=== PATIENT | female | born 1990 | race African-American/Black ===

== ENCOUNTER 2019-02-04 10:14 | Emergency (ER) | payer BC ==
[2019-02-04 10:25] VITALS: TEMP 98.6; BMI 19.8
--- NOTE | 2019-02-04 11:17 | PDOC ---
History of Present Illness - General Chief Complaint: Vaginal Bleeding Stated Complaint: SEVEN WK MD/VAGINAL BLEEDING Time Seen by Provider: 02/04/19 10:55 History Source: Patient Exam Limitations: No Limitations - History of Present Illness Initial Comments: 02/04/19 11:16 28F w/ pmh of fibroids presents to [facility] with complaint of vaginal bleeding x1 episode. Denies pain. Had streaks of light blood on the toilet paper , light pink water. Never had episodes of vaginal bleed outside of menstruation. Endorses increase in urinary frequency, urinating 3x/hr. Engages in nonbarrier monogamous intercourse with boyfriend. Last sexual intercourse was 2d prior. LMP was December 16. Never had had prior pregnancies. Has not see OB , appt set up for next week. Had yeast infection treated 1 month ago, treated with 1wk of vaginal topical medication. Had h/o chlamydia, 5ys prior. Severity: mild Associated Symptoms: denies: chest pain, cough, diaphoresis, fever/chills, headaches, malaise, nausea/vomiting, shortness of breath Past History - Travel Traveled outside of the country in the last 30 days: No Close contact w/someone who was outside of country & ill: No - Past Medical History Allergies/Adverse Reactions: Allergies Allergy/AdvReac Type Severity Reaction Status Date / Time No Known Allergies Allergy Verified 02/04/19 10:22 Home Medications: Ambulatory Orders Miconazole Nitrate [Miconazole 7] 45 gm VG DAILY #7 cream.appl 02/04/19 Prenat 115/Iron Fum/Folic/Dss [ 19 Tablet] 1 each PO DAILY 02/04/19 COPD: No - Surgical History Abdominal Surgery: No Appendectomy: No - Family Disease History Family Disease History: Other: Father (HTN) - Reproductive History LMP comment: December 16, 2018 Is Patient Now?: Yes (#): 1 Para: 0 - Immunization History Immunization Up to Date: No - Suicide/Smoking/Psychosocial Hx Smoking History: Never smoked Hx Alcohol Use: No Drug/Substance Use Hx: No Review of Systems - Review of Systems Is the patient limited [place]se proficient: No Constitutional: No: Chills, Fever, Malaise HEENTM: No: Blurred Vision, Double Vision Respiratory: No: Cough, Shortness of Breath, Wheezing Cardiac (ROS): No: Chest Pain, Irregular Heart Rate ABD/GI: Yes: Nausea, Other (mild nausea for past weeks). No: Constipated, Diarrhea : Yes: Frequency (urinates 3x/hr) Neurological: No: Headache, Dizziness *Physical Exam - Vital Signs Last Vital Signs Temp Pulse Resp BP Pulse Ox 98.6 F 75 18 145/94 100 02/04/19 10:22 02/04/19 10:22 02/04/19 10:22 02/04/19 10:22 02/04/19 10:22 - Physical Exam General Appearance: Yes: Nourished. No: Apparent Distress HEENT: positive: EOMI. negative: Pale Conjunctivae, Scleral Icterus (R), Scleral Icterus (L) Neck: positive: Trachea midline. negative: Lymphadenopathy (R), Lymphadenopathy (L) Respiratory/Chest: positive: Lungs Clear, Normal Breath Sounds. negative: Respiratory Distress, Accessory Muscle Use, Labored Respiration Cardiovascular: positive: Regular Rhythm, Regular Rate, S1, S2. negative: Murmur Female Pelvic Exam: positive: normal external exam, cervical os closed, normal adnexa, discharge (thick yellow-white chunky discharge with slight pink tinge). negative: CMT, lesions, Bartholin mass, adnexal tenderness Gastrointestinal/Abdominal: positive: Flat, Soft. negative: Tender, Guarding, Rebound, Tenderness ED Treatment Course - LABORATORY CBC & Chemistry Diagram: 02/04/19 11:40 02/04/19 11:40 Medical Decision Making - Medical Decision Making 02/04/19 12:06 28F with pmh of fibroids presenting w/ complaint of light vaginal bleeding, increased urinary frequency; physical exam findings suggestive of possible fungal infection # vaginal bleeding - fu serum B-hCG - fu TVUS - fu CBC - fu T&S -- to check for Rh status # urinary frequency -- possible UTIs - fu UA, UCX # vaginal fungal infection - possible fluconazole as outpatient # risk of STDs - fu trich, GC panel - will treat as needed 02/04/19 12:11 02/04/19 14:09 *DC/Admit/Observation/Transfer Diagnosis at time of Disposition: Vaginal candidiasis - Discharge Dispostion Disposition: HOME Condition at time of disposition: Improved - Prescriptions Prescriptions: Miconazole Nitrate [Miconazole 7] 45 gm VG DAILY #7 cream.appl - Referrals Referrals: Salvador Hensley MD [Staff Physician] - - Patient Instructions Printed Discharge Instructions: DI for Abdominal Pain -- Early Additional Instructions: You were seen in the ER for vaginal bleeding in . We did an exam, laboratory work on your blood and urine, and an ultrasound. After our assessment , we believe you are having a miscarriage but we do not think you are having a medical emergency at this time, and you are safe to go home. Please take Tylenol for any mild-moderate pain. Follow up with your credit review analyst in the next 1-3 days, or come back to the ER in 2 days, for repeat hormone level testing and repeat ultrasound to make sure you don't have an ectopic . Call their clinic [facility], tell them you were seen in the er, and tell them you need an appointment. Please come back to the ER at any time (24 hours a day) for any new or worsening symptoms, like worsening pelvic pain, loss of consciousness, high fever, headache, seizure, fainting, anemia, large amount of blood loss, or other symptoms. If you are having severe or life threatening symptoms, or symptoms that make it unsafe to drive or have someone drive you, please call 911. - Post Discharge Activity
[2019-02-04 11:50] LABS: BASO % 1.5 % (0-2.0); EOS % 1.3 % (0-4.5); HEMATOCRIT 40.8 % (32.4-45.2); HEMOGLOBIN 13.6 GM/dL (10.7-15.3); LYMPH % 31.6 % (8-40); MCH 30.2 pg (25.7-33.7); MCHC 33.4 g/dl (32.0-36.0); MEAN CELL VOLUME 90.5 fl (80-96); MONO % 8.3 % (3.8-10.2); NEUT % 57.3 % (42.8-82.8); PLATELET COUNT 217 K/MM3 (134-434); RBC 4.51 M/mm3 (3.60-5.2); RDW 13.6 % (11.6-15.6); WHITE BLOOD COUNT 3.5 K/mm3 (4.0-10.0)
[2019-02-04 12:27] LABS: ALBUMIN 3.7 g/dl (3.4-5.0); BILIRUBIN,TOTAL 0.4 mg/dL (0.2-1); BLOOD UREA NITROGEN 4.4 mg/dL (7-18); CALCIUM 9.2 mg/dL (8.5-10.1); CREATININE 0.7 mg/dL (0.55-1.3); TOT PROT 7.2 g/dl (6.4-8.2)
[2019-02-04 12:50] LABS: PH,URINE 7.5 (5.0-8.0); URINE APPEARANCE CLEAR; URINE BILIRUBIN NEGATIVE (NEGATIVE); URINE COLOR YELLOW; URINE GLUCOSE (UA) NEGATIVE (NEGATIVE); URINE KETONE NEGATIVE (NEGATIVE); URINE LEUK ESTERASE NEGATIVE (NEGATIVE); URINE NITRITE NEGATIVE (NEGATIVE); URINE PROTEIN NEGATIVE (NEGATIVE); URINE UROBILINOGEN 0.2 mg/dL (0.2-1.0)
--- NOTE | 2019-02-04 13:26 | PDOC ---
*Physical Exam - Vital Signs Last Vital Signs Temp Pulse Resp BP Pulse Ox 98.6 F 75 18 145/94 100 02/04/19 10:22 02/04/19 10:22 02/04/19 10:22 02/04/19 10:22 02/04/19 10:22 - Physical Exam General Appearance: Yes: Nourished, Appropriately Dressed. No: Apparent Distress HEENT: positive: EOMI, MADI, Normal Voice, Symmetrical Neck: positive: Trachea midline. negative: Tender Respiratory/Chest: positive: Lungs Clear, Normal Breath Sounds. negative: Chest Tender, Respiratory Distress, Accessory Muscle Use Cardiovascular: positive: Regular Rhythm, Regular Rate Extremity: positive: Normal Capillary Refill, Normal Inspection, Normal Range of Motion, Tender Integumentary: positive: Normal Color, Dry, Warm Neurologic: positive: congressional aide II-XII NML intact, Fully Oriented, Alert, Normal Mood/ Affect <Beny Cai - Last Filed: 02/04/19 13:44> - Vital Signs Last Vital Signs Temp Pulse Resp BP Pulse Ox 98.6 F 75 18 145/94 100 02/04/19 10:22 02/04/19 10:22 02/04/19 10:22 02/04/19 10:22 02/04/19 10:22 <Zohra Valencia - Last Filed: 02/04/19 14:07> ED Treatment Course - LABORATORY CBC & Chemistry Diagram: 02/04/19 11:40 02/04/19 11:40 - ADDITIONAL ORDERS Additional order review: Laboratory Results 02/04/19 02/04/19 02/04/19 12:00 11:40 11:40 Sodium 137 Potassium 4.0 Chloride 105 Carbon Dioxide 27 Anion Gap 4 L BUN 4.4 L Creatinine 0.7 Est GFR (CKD-EPI)AfAm 137.62 Est GFR (CKD-EPI)NonAf 118.74 Random Glucose 76 Calcium 9.2 Total Bilirubin 0.4 AST 12 L ALT 15 Alkaline Phosphatase 61 Total Protein 7.2 Albumin 3.7 Beta HCG, Quant Urine Color Yellow Urine Appearance Clear Urine pH 7.5 Ur Specific [place] 1.007 L Urine Protein Negative Urine Glucose (UA) Negative Urine Ketones Negative Urine Blood Negative Urine Nitrite Negative Urine Bilirubin Negative Urine Urobilinogen 0.2 Ur Leukocyte Esterase Negative Blood Type O POSITIVE Antibody Screen Negative 02/04/19 11:40 Sodium Potassium Chloride Carbon Dioxide Anion Gap BUN Creatinine Est GFR (CKD-EPI)AfAm Est GFR (CKD-EPI)NonAf Random Glucose Calcium Total Bilirubin AST ALT Alkaline Phosphatase Total Protein Albumin Beta HCG, Quant 868.7 Urine Color Urine Appearance Urine pH Ur Specific [place] Urine Protein Urine Glucose (UA) Urine Ketones Urine Blood Urine Nitrite Urine Bilirubin Urine Urobilinogen Ur Leukocyte Esterase Blood Type Antibody Screen 02/04/19 11:40 RBC 4.51 MCV 90.5 MCHC 33.4 RDW 13.6 MPV 9.0 Neutrophils % 57.3 Lymphocytes % 31.6 Monocytes % 8.3 Eosinophils % 1.3 Basophils % 1.5 <Beny Cai - Last Filed: 02/04/19 13:44> - LABORATORY CBC & Chemistry Diagram: 02/04/19 11:40 02/04/19 11:40 - ADDITIONAL ORDERS Additional order review: Laboratory Results 02/04/19 02/04/19 02/04/19 12:00 11:40 11:40 Sodium 137 Potassium 4.0 Chloride 105 Carbon Dioxide 27 Anion Gap 4 L BUN 4.4 L Creatinine 0.7 Est GFR (CKD-EPI)AfAm 137.62 Est GFR (CKD-EPI)NonAf 118.74 Random Glucose 76 Calcium 9.2 Total Bilirubin 0.4 AST 12 L ALT 15 Alkaline Phosphatase 61 Total Protein 7.2 Albumin 3.7 Beta HCG, Quant Urine Color Yellow Urine Appearance Clear Urine pH 7.5 Ur Specific [place] 1.007 L Urine Protein Negative Urine Glucose (UA) Negative Urine Ketones Negative Urine Blood Negative Urine Nitrite Negative Urine Bilirubin Negative Urine Urobilinogen 0.2 Ur Leukocyte Esterase Negative Blood Type O POSITIVE Antibody Screen Negative 02/04/19 11:40 Sodium Potassium Chloride Carbon Dioxide Anion Gap BUN Creatinine Est GFR (CKD-EPI)AfAm Est GFR (CKD-EPI)NonAf Random Glucose Calcium Total Bilirubin AST ALT Alkaline Phosphatase Total Protein Albumin Beta HCG, Quant 868.7 Urine Color Urine Appearance Urine pH Ur Specific [place] Urine Protein Urine Glucose (UA) Urine Ketones Urine Blood Urine Nitrite Urine Bilirubin Urine Urobilinogen Ur Leukocyte Esterase Blood Type Antibody Screen 02/04/19 11:40 RBC 4.51 MCV 90.5 MCHC 33.4 RDW 13.6 MPV 9.0 Neutrophils % 57.3 Lymphocytes % 31.6 Monocytes % 8.3 Eosinophils % 1.3 Basophils % 1.5 <Zohra Valencia - Last Filed: 02/04/19 14:07> Medical Decision Making - Medical Decision Making 02/04/19 13:[address] Negro -Pt awaiting TVUS, after beta HCG -Plan for fluconazole for empiric tx of gonzalo white discharge -Pt with OB appointment next week 02/04/19 13:36 -TVUS: possible early IUP -Beta positive 02/04/19 13:46 -Send out with 2% miconazole qHS 7 nights for suspected candidal infection <Beny Cai - Last Filed: 02/04/19 13:44> *DC/Admit/Observation/Transfer - Discharge Dispostion Decision to Admit order: No <Beny Cai - Last Filed: 02/04/19 13:44> - Discharge Dispostion Decision to Admit order: No <Zohra Valencia - Last Filed: 02/04/19 14:07> Diagnosis at time of Disposition: Vaginal candidiasis - Discharge Dispostion Disposition: HOME Condition at time of disposition: Improved - Prescriptions Prescriptions: Miconazole Nitrate [Miconazole 7] 45 gm VG DAILY #7 cream.appl - Referrals Referrals: Salvador Hensley MD [Staff Physician] - - Patient Instructions Printed Discharge Instructions: DI for Abdominal Pain -- Early Additional Instructions: You were seen in the ER for vaginal bleeding in . We did an exam, laboratory work on your blood and urine, and an ultrasound. After our assessment , we believe you are having a miscarriage but we do not think you are having a medical emergency at this time, and you are safe to go home. Please take Tylenol for any mild-moderate pain. Follow up with your industrial roofer in the next 1-3 days, or come back to the ER in 2 days, for repeat hormone level testing and repeat ultrasound to make sure you don't have an ectopic . Call their clinic [facility], tell them you were seen in the er, and tell them you need an appointment. Please come back to the ER at any time (24 hours a day) for any new or worsening symptoms, like worsening pelvic pain, loss of consciousness, high fever, headache, seizure, fainting, anemia, large amount of blood loss, or other symptoms. If you are having severe or life threatening symptoms, or symptoms that make it unsafe to drive or have someone drive you, please call 911.
[2019-02-04 14:27] VITALS: BP 132/84; PULSE 71
--- NOTE | 2019-02-04 16:45 | PDOC ---
Documentation entered by Varinder Baig SCRIBE, acting as scribe for Sunny Márquez MD. Sunny Márquez MD: This documentation has been prepared by the Jovanni guzmán Renju, SCRIBE, under my direction and personally reviewed by me in its entirety. I confirm that the documentation accurately reflects all work, treatment, procedures, and medical decision making performed by me. Attending Attestation - Resident Resident Name: Massimo Negro - ED Attending Attestation I have performed the following: I have examined & evaluated the patient, The case was reviewed & discussed with the resident, I agree w/resident's findings & plan, Exceptions are as noted - HPI HPI: 02/04/19 13:08 The patient is a 28 year old female with a past medical history of fibroids who presents to the emergency department for evaluation of vaginal bleeding for 1 day. Patient endorses symptom of urinary frequency 3 times every hour. Patient admits to having unprotected intercourse in a monogamous relationship. No prior pregnancies. Patient notes she had a yeast infection 1 month ago which was treated with 1 week of vaginal topical medication. Patient states she has MANAGER AREA appt set up for next week. LMP was December 16. Denies pain, chest pain, shortness of breath, headache, cough, diaphoresis, fever/chills, and nausea/vomiting. Allergies: No known allergies Social History: No reported alcohol, cigarette, or drug use. - Physicial Exam PE: 02/04/19 13:09 ROS: A complete review of 10 out of 10 review of systems is taken and is negative apart from what is previously mentioned below and in the HPI. EXAM: Vitals: Triage Vital signs reviewed General Appearance: no acute distress, well nourished well developed, Head: Atraumatic, Eyes: Pupils equal reactive round, extraocular movement intact Neck: Supple; Chest Wall: Nontender Cardiac: Regular rate and rhythm, no murmurs, no rubs, no gallops, Lungs: Clear to auscultation bilaterally, good air movement bilaterally, Abdomen: Soft, non distended, normal bowel sounds, non tender to palpation Extremities: Full range of motion to all extremities, no cyanosis, clubbing, or edema Skin: Warm and dry, no rashes or lesions, no rash, no petechiae Neuro: Strength intact to all extremities, Sensation intact to all extremities, gait normal Psych: normal mood, normal affect 02/04/19 14:34 - Medical Decision Making 02/04/19 18:49 22 years old 28 years old presents emergency Department with urinary frequency vaginal bleeding times one day Patient found to be ultrasound performed which demonstrated gestational sac but no yolk sac or heart rate Differential diagnosis includes early ectopic versus very early IUP No abdominal pain on examination patient is well-appearing no apparent distress She will follow-up with her MANAGER AREA in 2 days for repeat beta repeat ultrasound or she'll return to the emergency department for repeat evaluation Very strict ectopic return precautions discussed with patient Findings, the need for follow-up and strict return instructions discussed length.
== END 2019-02-04 14:15 | disposition home or self-care (01) ==
LOC: JER 10:14
DX: O26.891 Other specified pregnancy related conditions, first trimester (principal); O98.811 Other maternal infectious and parasitic diseases complicating pregnancy, first trimester; B37.3 Candidiasis of vulva and vagina; Z3A.01 Less than 8 weeks gestation of pregnancy
CPT/HCPCS: 36415; 76830-TC; 80053; 81003; 84702; 85025; 86850; 86900; 86901; 87086; 87491; 87591; 87661; 99283-25

== ENCOUNTER 2019-02-07 11:23 | Emergency (ER) | payer BC ==
[2019-02-07 11:27] VITALS: BP 118/69; PULSE 76; TEMP 98.5; BMI 19.8
--- NOTE | 2019-02-07 11:43 | PDOC ---
History of Present Illness - General Chief Complaint: Revisit, Lab Variance Stated Complaint: 7 WKS/ BLEEDING Time Seen by Provider: 02/07/19 11:28 History Source: Patient Exam Limitations: Clinical Condition - History of Present Illness Initial Comments: 02/07/19 11:40 Patient with no significant past medical history present for repeat beta hCG status post being seen 3 days ago with vaginal spotting. Patient denies vaginal bleeding, abdominal pain, nausea, vomiting, fever or chills. Denies any symptoms now Timing/Duration: other (3 days) Past History - Past Medical History Allergies/Adverse Reactions: Allergies Allergy/AdvReac Type Severity Reaction Status Date / Time No Known Allergies Allergy Verified 02/07/19 11:28 Home Medications: Ambulatory Orders Miconazole Nitrate [Miconazole 7] 45 gm VG DAILY #7 cream.appl 02/04/19 Prenat 115/Iron Fum/Folic/Dss [ 19 Tablet] 1 each PO DAILY 02/04/19 COPD: No - Surgical History Abdominal Surgery: No Appendectomy: No - Family Disease History Family Disease History: Other: Father (HTN) - Reproductive History (#): 1 Para: 0 - Immunization History Immunization Up to Date: No - Suicide/Smoking/Psychosocial Hx Smoking History: Never smoked Hx Alcohol Use: No Drug/Substance Use Hx: No Review of Systems - Review of Systems Able to Perform ROS?: Yes Is the patient limited Setswana proficient: No Constitutional: No: Chills, Fever, Malaise, Weakness HEENTM: No: Symptoms Reported Respiratory: No: Symptoms reported Cardiac (ROS): No: Symptoms Reported ABD/GI: No: Symptoms Reported, Nausea, Vomiting : Yes: Symptoms Reported, See HPI. No: Burning, Dysuria, Frequency, Flank Pain, Urgency, Other (vaginal bleeding) Musculoskeletal: No: Symptoms Reported Integumentary: No: Symptoms Reported Neurological: No: Symptoms reported, Headache, Dizziness All Other Systems: Reviewed and Negative *Physical Exam - Vital Signs Last Vital Signs Temp Pulse Resp BP Pulse Ox 98.5 F 76 16 118/69 100 02/07/19 11:25 02/07/19 11:25 02/07/19 11:25 02/07/19 11:25 02/07/19 11:25 - Physical Exam General Appearance: Yes: Nourished, Appropriately Dressed. No: Apparent Distress HEENT: positive: Normal ENT Inspection Neck: positive: Supple Respiratory/Chest: positive: Lungs Clear, Normal Breath Sounds. negative: Respiratory Distress, Accessory Muscle Use Cardiovascular: positive: Regular Rhythm, Regular Rate Female Pelvic Exam: positive: normal external exam, cervical os closed Gastrointestinal/Abdominal: positive: Normal Bowel Sounds, Flat. negative: Tender Musculoskeletal: positive: Normal Inspection. negative: CVA Tenderness Extremity: positive: Normal Inspection Integumentary: positive: Normal Color Neurologic: positive: Fully Oriented, Alert, Normal Mood/Affect, Normal Response Medical Decision Making - Medical Decision Making 02/07/19 11:41 Patient with no significant past medical history present for repeat beta hCG status post being seen 3 days ago with vaginal spotting. Patient denies vaginal bleeding, abdominal pain, nausea, vomiting, fever or chills. Denies any symptoms now No vaginal bleeding on exam. No abdominal pains. No cervical motion tenderness. Repeat beta hCG labs ordered. Transvaginal ultrasound ordered to be done after beta hCG lab 02/07/19 13:55 repeat beta hcg today is 976 from 864 three days ago which is an inappropriate rise. transvaginal u/s shows pos intrauterine GS with pos YS. no pole . no adnexal mass. Results discussed with on-call CALENDER INSPECTOR Dr. Hensley who advise for patient to follow-up in 1 week in clinic for repeat beta hcg and U/S. Plan discussed with patient who agrees to plan and follow-up. Strict follow-up instructions and bleeding precautions given to patient. Patient stable for discharge. Patient already have appointment in 1 [address] at [address] [place] [address] *DC/Admit/Observation/Transfer Diagnosis at time of Disposition: Early stage of - Discharge Dispostion Disposition: HOME Condition at time of disposition: Stable Decision to Admit order: No - Referrals Referrals: Salvador Hensley MD [Staff Physician] - - Patient Instructions Additional Instructions: Your ultrasound shows early . Follow-up with CALENDER INSPECTOR in one week as scheduled for repeat ultrasound. Come back to ED if vaginal bleeding or severe abdominal pain. Follow-up in [facility] as scheduled - Post Discharge Activity
== END 2019-02-07 13:48 | disposition home or self-care (01) ==
LOC: JERFT 11:23
DX: O26.891 Other specified pregnancy related conditions, first trimester (principal); O36.80X0 Pregnancy with inconclusive fetal viability, not applicable or unspecified; Z3A.01 Less than 8 weeks gestation of pregnancy
CPT/HCPCS: 36415; 76817-TC; 84702; 99281-25

== ENCOUNTER 2019-02-11 20:59 | Emergency (ER) | payer BC ==
[2019-02-11 21:08] VITALS: BP 148/92; PULSE 85; TEMP 98; BMI 19.8
[2019-02-11] MEDS ORDERED: ACETAMINOPHEN 325 MG TABLET (FP) PO ONE (22:33)
[2019-02-11] MEDS ORDERED: ACETAMINOPHEN 325 MG TABLET (FP) ONE (23:03)
[2019-02-11 23:18] LABS: BASO % 0.6 % (0-2.0); EOS % 1.7 % (0-4.5); HEMATOCRIT 41.4 % (32.4-45.2); LYMPH % 41.2 % (8-40); MCH 30.5 pg (25.7-33.7); MCHC 33.8 g/dl (32.0-36.0); MEAN CELL VOLUME 90.2 fl (80-96); MEAN PLT VOLUME 8.9 fl (7.5-11.1); MONO % 7.5 % (3.8-10.2); PLATELET COUNT 228 K/MM3 (134-434); RBC 4.59 M/mm3 (3.60-5.2); RDW 13.4 % (11.6-15.6); WHITE BLOOD COUNT 4.6 K/mm3 (4.0-10.0)
[2019-02-11 23:25] LABS: EPI CELLS 1.6 /HPF (0-5/HPF); HYALINE CASTS 2 /lpf (0-8); URINE APPEARANCE CLEAR; URINE BACTERIA 7.1 /hpf (NEGATIVE); URINE BILIRUBIN NEGATIVE (NEGATIVE); URINE COLOR YELLOW; URINE GLUCOSE (UA) NEGATIVE (NEGATIVE); URINE KETONE NEGATIVE (NEGATIVE); URINE LEUK ESTERASE NEGATIVE (NEGATIVE); URINE NITRITE NEGATIVE (NEGATIVE); URINE PROTEIN NEGATIVE (NEGATIVE); URINE RBC 36 /hpf (0-4); URINE UROBILINOGEN 0.2 mg/dL (0.2-1.0); URINE WBC 2 /hpf (0-5)
[2019-02-11 23:36] LABS: ALBUMIN 3.9 g/dl (3.4-5.0); BILIRUBIN,TOTAL 0.4 mg/dL (0.2-1); BLOOD UREA NITROGEN 8.7 mg/dL (7-18); CALCIUM 9.1 mg/dL (8.5-10.1); CREATININE 0.7 mg/dL (0.55-1.3); POTASSIUM 3.7 mmol/L (3.5-5.1); TOT PROT 7.5 g/dl (6.4-8.2)
--- NOTE | 2019-02-11 23:42 | PDOC ---
History of Present Illness - General Chief Complaint: Vaginal Bleeding Stated Complaint: ABD PAIN/VAGINAL BLEEDING/7WKS PREG. Time Seen by Provider: 02/11/19 22:26 History Source: Patient Exam Limitations: No Limitations - History of Present Illness Initial Comments: 02/11/19 23:39 Patient is a 28F at 6 weeks here today complaining of vaginal bleeding that started today. Patient endorses multiple clots passing as well. Denies chest pain, shortness of breath, lightheadedness. Endorses mild headache and lower abdominal cramping described as worse than normal premenstrual cramps. Patient was worked up in ED 4 days ago and had TVUS that confirmed IUP. Taking only vitamins. Denies dysuria. Past History - Past Medical History Allergies/Adverse Reactions: Allergies Allergy/AdvReac Type Severity Reaction Status Date / Time No Known Allergies Allergy Verified 02/11/19 21:08 Home Medications: Ambulatory Orders Miconazole Nitrate [Miconazole 7] 45 gm VG DAILY #7 cream.appl 02/04/19 Prenat 115/Iron Fum/Folic/Dss [ 19 Tablet] 1 each PO DAILY 02/04/19 COPD: No - Surgical History Abdominal Surgery: No Appendectomy: No - Family Disease History Family Disease History: Other: Father (HTN) - Reproductive History (#): 1 Para: 0 - Immunization History Immunization Up to Date: No - Suicide/Smoking/Psychosocial Hx Smoking History: Unknown if ever smoked Have you smoked in the past 12 months: No Information on smoking cessation initiated: No Hx Alcohol Use: No Drug/Substance Use Hx: No Review of Systems - Review of Systems Able to Perform ROS?: Yes Comments:: 02/11/19 23:40 GENERAL/CONSTITUTIONAL: No fever or chills. No weakness. HEAD, EYES, EARS, NOSE AND THROAT: No change in vision. No ear pain or discharge. No sore throat. CARDIOVASCULAR: No chest pain or shortness of breath RESPIRATORY: No cough, wheezing, or hemoptysis. GASTROINTESTINAL: No nausea, vomiting, diarrhea or constipation. GENITOURINARY: No dysuria, frequency, or change in urination. MUSCULOSKELETAL: No joint or muscle swelling or pain. No neck or back pain. SKIN: No rash NEUROLOGIC: +headache, no vertigo, loss of consciousness, or change in strength/ sensation. ENDOCRINE: No increased thirst. No abnormal weight change HEMATOLOGIC/LYMPHATIC: No anemia, easy bleeding, or history of blood clots. ALLERGIC/IMMUNOLOGIC: No hives or skin allergy. *Physical Exam - Vital Signs Last Vital Signs Temp Pulse Resp BP Pulse Ox 98.0 F 85 16 148/92 100 02/11/19 21:06 02/11/19 21:06 02/11/19 21:06 02/11/19 21:06 02/11/19 21:06 - Physical Exam Comments: 02/11/19 23:41 GENERAL: Awake, alert, and fully oriented, in no acute distress HEAD: No signs of trauma, normocephalic, atraumatic EYES: PERRLA, EOMI, sclera anicteric, conjunctiva clear ENT: Auricles normal inspection, hearing grossly normal, nares patent, oropharynx clear without exudates. Moist mucosa NECK: Normal ROM, supple, no lymphadenopathy, JVD, or masses LUNGS: No distress, speaks full sentences, clear to auscultation bilaterally HEART: Regular rate and rhythm, normal S1 and S2, no murmurs, rubs or gallops, peripheral pulses normal and equal bilaterally. ABDOMEN: Soft, nontender, normoactive bowel sounds. No guarding, no rebound. No masses EXTREMITIES: Normal inspection, Normal range of motion, no edema. No clubbing or cyanosis. NEUROLOGICAL: Cranial nerves II through XII grossly intact. Normal speech, normal gait, no focal sensorimotor deficits SKIN: Warm, Dry, normal turgor, no rashes or lesions noted. PELVIC: Open cervical os with products of conception and blood, no cmt, normal external genitalia. ED Treatment Course - LABORATORY CBC & Chemistry Diagram: 02/11/19 23:00 02/11/19 23:00 - ADDITIONAL ORDERS Additional order review: Laboratory Results 02/11/19 02/11/19 02/11/19 23:00 23:00 23:00 Sodium 138 Potassium 3.7 Chloride 106 Carbon Dioxide 26 Anion Gap 6 L BUN 8.7 Creatinine 0.7 Est GFR (CKD-EPI)AfAm 137.62 Est GFR (CKD-EPI)NonAf 118.74 Random Glucose 72 L Calcium 9.1 Total Bilirubin 0.4 AST 13 L ALT 19 Alkaline Phosphatase 69 Total Protein 7.5 Albumin 3.9 Beta HCG, Quant 928.7 Urine Color Yellow Urine Appearance Clear Urine pH 6.0 Ur Specific [place] 1.027 Urine Protein Negative Urine Glucose (UA) Negative Urine Ketones Negative Urine Blood 2+ H Urine Nitrite Negative Urine Bilirubin Negative Urine Urobilinogen 0.2 Ur Leukocyte Esterase Negative Urine WBC (Auto) 2 Urine RBC (Auto) 36 Urine Casts (Auto) 2 U Epithel Cells (Auto) 1.6 Urine Bacteria (Auto) 7.1 Urine HCG, Qual Positive 02/11/19 23:00 RBC 4.59 MCV 90.2 MCHC 33.8 RDW 13.4 MPV 8.9 Neutrophils % 49.0 Lymphocytes % 41.2 H D Monocytes % 7.5 Eosinophils % 1.7 Basophils % 0.6 - RADIOLOGY Radiology Studies Ordered: Category Date Time Status TRANSVAGINAL US PREG [US] Stat Ultrasound 02/11/19 22:33 Ordered - Medications Given in the ED: ED Medications Discontinued Medications Generic Name Dose Route Start Last Admin Trade Name Freq PRN Reason Stop Dose Admin Acetaminophen 975 mg 02/11/19 22:33 02/11/19 23:15 Tylenol - PO 02/11/19 22:34 975 mg ONCE ONE Administration Medical Decision Making - Medical Decision Making 02/11/19 23:41 Patient is a 28F here today with in progress. Will evaluate with cbc, cmp, type and screen, tvus, beta quant. Beta quant slightly down from 4 days ago. CBC, CMP stable. 02/12/19 00:23 CBC normal. CMP normal. Blood type O+ TVUS pending. 02/12/19 01:03 TVUS shows no retained products, no IUP. Will discharge home with OBGYN follow up. *DC/Admit/Observation/Transfer Diagnosis at time of Disposition: Complete miscarriage - Discharge Dispostion Disposition: HOME Condition at time of disposition: Good Decision to Admit order: No - Referrals Referrals: Salvador Hensley MD [Staff Physician] - - Patient Instructions Printed Discharge Instructions: DI for Miscarriage Additional Instructions: Please follow up with the OBGYN below. Please return if you have any new, worsening or concerning symptoms, especially continued heavy bleeding, fever and pain. - Post Discharge Activity
[2019-02-11 23:45] LABS: INR 0.99 (0.83-1.09); PROTHROMBIN TIME (PATIENT) 11.7 SEC (9.7-13.0)
--- NOTE | 2019-02-12 00:19 | PDOC ---
Documentation entered by Chely Sierra SCRIBE, acting as scribe for Chantelle Artis DO. Chantelle Artis DO: This documentation has been prepared by the Mariela guzmán Brenda, SCRIBE, under my direction and personally reviewed by me in its entirety. I confirm that the documentation accurately reflects all work , treatment, procedures, and medical decision making performed by me. Attending Attestation - Resident Resident Name: Marques Perkins - ED Attending Attestation I have performed the following: I have examined & evaluated the patient, The case was reviewed & discussed with the resident, I agree w/resident's findings & plan, Exceptions are as noted - HPI HPI: 02/11/19 23:59 The patient is a 27 year old female () , with a significant PMH of fibroids who presents to the emergency department with 1 day of vaginal bleeding. Patient report passing large clots, and endorses abdominal cramping with a mild headache. The patient denies chest pain, shortness of breath and dizziness. Denies fever, nausea, vomiting, diarrhea and constipation. Denies dysuria, frequency, urgency. Denies any other symptoms. Allergies: NKA Past surgical history: Denies Social history: Denies any tobacco use. PCP: Salvador Hensley ABSENCE MANAGEMENT CONSULTANT: None - Physicial Exam PE: 02/11/19 23:59 Agree with resident's exam. - Medical Decision Making 02/12/19 00:18 28-year-old female with vaginal bleeding Exam revealed likely products of conception Beta quantitative levels have not increased appropriately over the last few weeks Plan for pelvic ultrasound to rule out retained products with likely DC home an outpatient [employer]ENCE MANAGEMENT CONSULTANT follow-up [facility] as needed
== END 2019-02-12 01:20 | disposition home or self-care (01) ==
LOC: JER 20:59
DX: O26.891 Other specified pregnancy related conditions, first trimester (principal); O03.9 Complete or unspecified spontaneous abortion without complication; Z3A.01 Less than 8 weeks gestation of pregnancy
CPT/HCPCS: 36415; 76817-TC; 80053; 81003; 84702; 84703; 85025; 85610; 86850; 86900; 86901; 87086; 99282-25

== ENCOUNTER 2021-05-18 09:37 | Emergency (ER) | payer BC, OTHER ==
[2021-05-18 10:12] VITALS: BP 119/69; PULSE 83; TEMP 98.5; BMI 19.4
[2021-05-18] MEDS ORDERED: KETOROLAC TROMETHAMINE 30 MG/1 ML VIAL IM ONE (10:38)
[2021-05-18] MEDS ORDERED: KETOROLAC TROMETHAMINE 30 MG/1 ML VIAL ONE (10:42)
== END 2021-05-18 11:54 | disposition home or self-care (01) ==
LOC: JERFT 09:37
PROC: 3E023GC Introduction of Other Therapeutic Substance into Muscle, Percutaneous Approach (ICD-10-PCS; principal; 2021-05-18)
DX: S99.912A Unspecified injury of left ankle, initial encounter (principal); W19.XXXA Unspecified fall, initial encounter
CPT/HCPCS: 73562-TC-LT-FY; 73590-TC-LT-FY; 73610-TC-LT-FY; 73630-TC-LT; 99284-25

== ENCOUNTER 2021-08-08 12:28 | Emergency (ER) | payer OTHER ==
[2021-08-08 12:36] VITALS: BP 140/83; PULSE 61; TEMP 97.8; BMI 19.4
== END 2021-08-08 13:31 | disposition home or self-care (01) ==
LOC: JERFT 12:28
DX: S00.12XA Contusion of left eyelid and periocular area, initial encounter (principal); W22.8XXA Striking against or struck by other objects, initial encounter
CPT/HCPCS: 99281-25

== ENCOUNTER 2024-01-07 13:49 | Emergency (ER) | payer SELFPAY ==
[2024-01-07 14:03] VITALS: TEMP 98.2; BMI 24.0
[2024-01-07 14:52] LABS: HEMATOCRIT 39.5 % (32.4-45.2); HEMOGLOBIN 13.2 GM/dL (10.7-15.3); MCH 30.3 pg (25.7-33.7); MCHC 33.5 g/dl (32.0-36.0); MEAN CELL VOLUME 90.4 fl (80-96); MEAN PLT VOLUME 8.2 fl (7.5-11.1); PLATELET COUNT 298 10^3/uL (134-434); RBC 4.37 M/mm3 (3.60-5.2); RDW 13.8 % (11.6-15.6); WHITE BLOOD COUNT 7.1 K/mm3 (4.0-10.0)
[2024-01-07 15:09] LABS: POTASSIUM 3.6 mmol/L (3.5-5.1)
[2024-01-07 15:11] LABS: EPI CELLS 19 /uL (0-25.1); HYALINE CASTS 1 /uL (0-3.1); PH,URINE 6.5 (5.0-8.0); URINE APPEARANCE CLEAR; URINE BACTERIA 116 /uL (0-1359); URINE BILIRUBIN NEGATIVE (NEGATIVE); URINE COLOR YELLOW; URINE GLUCOSE (UA) NEGATIVE (NEGATIVE); URINE KETONE 3+ (NEGATIVE); URINE LEUK ESTERASE NEGATIVE (NEGATIVE); URINE NITRITE NEGATIVE (NEGATIVE); URINE PROTEIN TRACE (NEGATIVE); URINE RBC 12 /uL (0-23.9); URINE WBC 20 /uL (0-25.8)
[2024-01-07] MEDS ORDERED: ACETAMINOPHEN INJECTION 100 ML IVPB ONE (15:11)
[2024-01-07 15:13] LABS: ALBUMIN 3.7 g/dl (3.4-5.0); BLOOD UREA NITROGEN 10.5 mg/dL (7-18)
[2024-01-07 15:16] LABS: CREATININE 0.8 mg/dL (0.55-1.3)
[2024-01-07 15:17] LABS: BILIRUBIN,TOTAL 0.3 mg/dL (0.2-1)
[2024-01-07] MEDS: ACETAMINOPHEN 1000 MG/100 ML BAG IVPB ONE (15:17)
[2024-01-07 15:18] LABS: TOT PROT 7.3 g/dl (6.4-8.2)
[2024-01-07] MEDS ORDERED: hydrALAZINE HCL 20 MG/ML VIAL IVPUSH ONE (15:19)
[2024-01-07] MEDS ORDERED: amLODIPine BESYLATE 10 MG TABLET (FP) ONE (15:33)
[2024-01-07] MEDS: amLODIPine BESYLATE 10 MG TABLET (FP) PO ONE (15:37)
[2024-01-07] MEDS ORDERED: METOCLOPRAMIDE HCL INJECTION 10 MG/2 ML VIAL ONE (16:55)
[2024-01-07] MEDS: METOCLOPRAMIDE HCL INJECTION 10 MG/2 ML VIAL IVPB ONE (17:14)
[2024-01-07 17:32] VITALS: BP 140/91; PULSE 74; RESP 16
== END 2024-01-07 17:48 | disposition home or self-care (01) ==
LOC: JER 13:49
PROC: 3E033NZ Introduction of Analgesics, Hypnotics, Sedatives into Peripheral Vein, Percutaneous Approach (ICD-10-PCS; principal; 2024-01-07)
PROC: 3E033GC Introduction of Other Therapeutic Substance into Peripheral Vein, Percutaneous Approach (ICD-10-PCS; 2024-01-07)
DX: I10 Essential (primary) hypertension (principal); R51.9 Headache, unspecified; Z20.822 Contact with and (suspected) exposure to COVID-19
CPT/HCPCS: 0241U-QW; 36415; 70450-TC; 80053; 81003; 84703; 85027; 99284-25; J0131